=== PATIENT | female | born 2005 | race Two or more races ===

== ENCOUNTER 2023-12-02 17:44 | Emergency (ER) | payer OTHER ==
[~2023-12-02] VITALS: Ht 154.9 cm; Wt 80.3 kg
[2023-12-02] MEDS ORDERED: FOLIC ACID0.8 M1 (17:56)
[2023-12-02] MEDS ORDERED: PRENATAL MULTI1 EAC3 (17:56)
[2023-12-02] MEDS ORDERED: 0.9 % SODIUM CHLORIDE 1,000 ML IV ONE (18:30)
[2023-12-02] MEDS ORDERED: FAMOtidine 10 MG/ML (4ML VIAL) IV ONE (18:30)
[2023-12-02] MEDS ORDERED: ONDANSETRON HCL 2 MG/ML VIAL IV ONE (18:30)
[2023-12-02] MEDS ORDERED: ONDANSETRON HCL 2 MG/ML VIAL ONE (18:35)
[2023-12-02] MEDS ORDERED: FAMOTIDINE/PF 20 MG/2 ML VIAL ONE (18:35)
[2023-12-02 19:03] LABS: HEMATOCRIT 42.8 % (36.0-45.00); HEMOGLOBIN 14.4 g/dL (12.0-15.00); MEAN CELL VOLUME 86.5 fL (80.00-100.00); MEAN CORPUSCULAR HEMOGLOBIN 29.1 pg (27.00-32.0); MEAN CORPUSCULAR HGB CONC 33.7 g/dl (32.0-36.0); PLATELET COUNT 196 K/uL (150-450); RED BLOOD COUNT 4.95 M/uL (4.00-6.00); RED CELL DISTRIBUTION WIDTH 13.7 % (11.5-14.5)
[2023-12-02 19:25] LABS: ALBUMIN 3.9 gm/dL (3.4-5.0); BILIRUBIN TOTAL 0.6 mg/dL (0.3-1.2); CALCIUM 9.9 mg/dL (8.5-10.1); CREATININE SERUM 0.52 mg/dL (0.55-1.02); GFR 150.34; GLOBULINA 3.7 G/DL (2.4-3.5); POTASSIUM 4.11 mEq/L (3.5-5.1); TOTAL PROTEIN 7.6 gm/dL (6.4-8.2)
[2023-12-02] MEDS ORDERED: ZOFRAN8 MG PO (21:40)
[2023-12-02] MEDS ORDERED: PEPCID AC20 MG PO (21:40)
== END 2023-12-02 21:49 | disposition home or self-care (01) ==
LOC: ER 17:46 → EMR PED 17:46 → ER 19:02
PROVIDERS: General Practice
DX: O99.611 Diseases of the digestive system complicating pregnancy, first trimester (principal); K92.89 Other specified diseases of the digestive system; Z3A.11 11 weeks gestation of pregnancy; R11.10 Vomiting, unspecified; Z20.822 Contact with and (suspected) exposure to COVID-19

== ENCOUNTER 2023-12-10 13:06 | Outpatient (CLI) | payer OTHER ==
[~2023-12-10 13:06] MED LIST: FOLIC ACID0.8 M1; PEPCID AC20 MG PO; PRENATAL MULTI1 EAC3; ZOFRAN8 MG PO
== END 2023-12-10 13:08 | disposition home or self-care (01) ==
LOC: PRENATAL 13:06
PROVIDERS: ATTEND Obstetrics & Gynecology Maternal & Fetal Medicine
DX: O36.80X0 Pregnancy with inconclusive fetal viability, not applicable or unspecified (principal); Z36.82 Encounter for antenatal screening for nuchal translucency; Z14.8 Genetic carrier of other disease; Z3A.12 12 weeks gestation of pregnancy

== ENCOUNTER 2023-12-29 12:14 | Outpatient (CLI) | payer OTHER | END 2023-12-29 12:15 | disposition home or self-care (01) | LOC: PRENATAL 12:14 | PROVIDERS: ATTEND Obstetrics & Gynecology Maternal & Fetal Medicine | DX: O26.849 Uterine size-date discrepancy, unspecified trimester (principal); O28.5 Abnormal chromosomal and genetic finding on antenatal screening of mother; O21.0 Mild hyperemesis gravidarum; Z3A.16 16 weeks gestation of pregnancy ==

== ENCOUNTER 2023-12-29 12:21 | Outpatient (CLI) | payer OTHER | END 2023-12-29 12:32 | disposition home or self-care (01) | LOC: LAB 12:21 | PROVIDERS: ATTEND Obstetrics & Gynecology Maternal & Fetal Medicine | DX: Z00.00 Encounter for general adult medical examination without abnormal findings (principal) ==

== ENCOUNTER 2024-01-23 10:19 | Outpatient (CLI) | payer OTHER ==
[2024-01-23] MEDS ORDERED: PRENATAL TABLE1 EAC1 PO (14:36)
[2024-01-23] MEDS ORDERED: FOLIC ACID0.8 M1 PO (14:36)
== END 2024-01-23 10:20 | disposition home or self-care (01) ==
LOC: PRENATAL 10:19
PROVIDERS: ATTEND Obstetrics & Gynecology Maternal & Fetal Medicine
DX: O35.3XX0 Maternal care for (suspected) damage to fetus from viral disease in mother, not applicable or unspecified (principal); O44.00 Complete placenta previa NOS or without hemorrhage, unspecified trimester; O28.5 Abnormal chromosomal and genetic finding on antenatal screening of mother; O26.879 Cervical shortening, unspecified trimester; Z3A.20 20 weeks gestation of pregnancy

== ENCOUNTER 2024-01-23 13:34 | Outpatient (CLI) | payer OTHER ==
[2024-01-23 12:23] VITALS: BP 105/67
[2024-01-23] MEDS ORDERED: RINGERS SOLUTION,LACTATED 1,000 ML IV SCH (14:00)
[2024-01-23] MEDS ORDERED: PRENATAL TABLE1 EAC1 PO (14:36)
[2024-01-23] MEDS ORDERED: FOLIC ACID0.8 M1 PO (14:36)
[2024-01-23 14:49] LABS: HEMATOCRIT 34.8 % (36.0-45.00); HEMOGLOBIN 11.7 g/dL (12.0-15.00); MEAN CELL VOLUME 89.4 fL (80.00-100.00); MEAN CORPUSCULAR HEMOGLOBIN 30.1 pg (27.00-32.0); MEAN CORPUSCULAR HGB CONC 33.7 g/dl (32.0-36.0); PLATELET COUNT 215 K/uL (150-450); RED BLOOD COUNT 3.89 M/uL (4.00-6.00)
[2024-01-23 14:52] LABS: URINE APPEARANCE Turbid; URINE BILIRRUBIN Small (NEGATIVE); URINE BLOOD Negative; URINE COLOR Dark Yellow; URINE GLUCOSE Negative (NEGATIVE); URINE LEUKOCYTE Moderate; URINE NITRATE Negative; URINE PROTEIN 30 (NEGATIVE)
[2024-01-23 14:58] LABS: URINE CAST 3.05 uL (0.0-1.40); URINE RBC 162.7 uL (0.0-20.8); URINE WBC 687.5 uL (0.0-23.2)
[2024-01-23 15:23] LABS: BILIRUBIN TOTAL 0.51 mg/dL (0.3-1.2); CALCIUM 9.4 mg/dL (8.5-10.1); GFR 320.28; GLOBULINA 3.4 G/DL (2.4-3.5); POTASSIUM 3.89 mEq/L (3.5-5.1); TOTAL PROTEIN 6.4 gm/dL (6.4-8.2)
[2024-01-23 15:25] VITALS: BP 115/72
[2024-01-23 15:36] LABS: CREATININE SERUM 0.27 mg/dL (0.55-1.02)
[2024-01-23 15:37] LABS: URINE BACTERIA > 9821.5 uL (0.0-1933); URINE EPITHELIAL CELLS > 201.7 uL (0.0-38.8); URINE KETONE >=160 (NEGATIVE)
[2024-01-23 18:11] VITALS: BP 115/72
== END 2024-01-23 18:11 | disposition home or self-care (01) ==
LOC: OBS/DEL 13:34
PROVIDERS: Obstetrics & Gynecology; ATTEND General Practice
DX: O26.872 Cervical shortening, second trimester (principal); Z3A.20 20 weeks gestation of pregnancy

== ENCOUNTER 2024-01-26 08:43 | Outpatient (CLI) | payer OTHER ==
[~2024-01-26 08:43] MED LIST changes: +FOLIC ACID0.8 M1 PO; +PRENATAL TABLE1 EAC1 PO
== END 2024-01-26 08:47 | disposition home or self-care (01) ==
LOC: PRENATAL 08:43
PROVIDERS: ATTEND Obstetrics & Gynecology Maternal & Fetal Medicine
DX: O28.5 Abnormal chromosomal and genetic finding on antenatal screening of mother (principal); O26.879 Cervical shortening, unspecified trimester; Z3A.20 20 weeks gestation of pregnancy

== ENCOUNTER 2024-01-26 09:55 | Inpatient (IN) | payer OTHER ==
[~2024-01-26] VITALS: Ht 152.4 cm; Wt 78.9 kg
[2024-01-26 10:13] VITALS: BP 109/70
[2024-01-26] MEDS ORDERED: RINGERS SOLUTION,LACTATED 1,000 ML IV SCH (11:30)
[2024-01-26] MEDS ORDERED: CEFAZOLIN SODIUM 1,000 MG VIAL IV NR (11:30)
[2024-01-26 12:33] LABS: HEMOGLOBIN 11.6 g/dL (12.0-15.00); MEAN CORPUSCULAR HEMOGLOBIN 30.1 pg (27.00-32.0); MEAN CORPUSCULAR HGB CONC 34.2 g/dl (32.0-36.0); PLATELET COUNT 205 K/uL (150-450); RED BLOOD COUNT 3.87 M/uL (4.00-6.00); RED CELL DISTRIBUTION WIDTH 15.3 % (11.5-14.5)
[2024-01-26 12:40] VITALS: BP 102/70
[2024-01-26 12:50] LABS: INR 0.94; PARTIAL THROMBOPLASTIN TIME 25.8 SECONDS (22.0-34.0); PROTHROMBIN TIME 9.8 SECONDS (9.0-11.5)
[2024-01-26 12:57] LABS: ALBUMIN 2.9 gm/dL (3.4-5.0); BILIRUBIN TOTAL 0.41 mg/dL (0.3-1.2); CALCIUM 9.4 mg/dL (8.5-10.1); CREATININE SERUM 0.3 mg/dL (0.55-1.02); GFR 283.61; GLOBULINA 3.4 G/DL (2.4-3.5); POTASSIUM 4.2 mEq/L (3.5-5.1); TOTAL PROTEIN 6.3 gm/dL (6.4-8.2)
[2024-01-26] MEDS ORDERED: METRONIDAZOLE/SODIUM CHLORIDE 500 MG/100 ML PIGGYBACK IV SCH (13:00)
[2024-01-26] MEDS ORDERED: INDOMETHACIN 50 MG CAPSULE PO SCH (13:00)
[2024-01-26 13:11] LABS: URINE APPEARANCE Clear; URINE BILIRRUBIN Negative (NEGATIVE); URINE BLOOD Negative; URINE COLOR Yellow; URINE GLUCOSE Negative (NEGATIVE); URINE LEUKOCYTE Negative; URINE NITRATE Negative; URINE PROTEIN Negative (NEGATIVE)
[2024-01-26 13:14] LABS: URINE BACTERIA 167.5 uL (0.0-1933); URINE EPITHELIAL CELLS 23.3 uL (0.0-38.8); URINE RBC 4.4 uL (0.0-20.8); URINE WBC 9.2 uL (0.0-23.2)
[2024-01-26 13:25] LABS: URINE CAST 0.15 uL (0.0-1.40); URINE KETONE >=160 (NEGATIVE)
[2024-01-26] MEDS ORDERED: POVIDONE-IODINE 118 ML BOTT TOP ONE (15:45)
[2024-01-26] MEDS ORDERED: INDOMETHACIN 25 MG CAPSULE PO PRN (16:15)
[2024-01-26] MEDS ORDERED: ONDANSETRON HCL 2 MG/ML VIAL IV ONE (17:10)
[2024-01-26 18:12] VITALS: BP 100/64
[2024-01-26] MEDS ORDERED: ACETAMINOPHEN 500 MG GEL..CAP PO PRN (20:00)
[2024-01-26 20:14] VITALS: BP 99/65
[2024-01-26 23:51] VITALS: BP 100/57; O2SAT 99
[2024-01-27 03:38] VITALS: BP 103/61; O2SAT 100
[2024-01-27 07:29] VITALS: BP 97/56
[2024-01-27 12:23] VITALS: BP 104/64
[2024-01-27 16:00] VITALS: BP 98/58
== END 2024-01-27 17:50 | disposition home or self-care (01) | DRG 819 ==
LOC: CIR.AMB 09:55 → LDR 10:04 → O/R 15:52 → LDR 17:57
PROVIDERS: General Practice; ADMIT Obstetrics & Gynecology Maternal & Fetal Medicine; ATTEND Obstetrics & Gynecology Maternal & Fetal Medicine
PROC: 4A1HXCZ Monitoring of Products of Conception, Cardiac Rate, External Approach (ICD-10-PCS; 2024-01-26)
PROC: 0UVC7ZZ Restriction of Cervix, Via Natural or Artificial Opening (ICD-10-PCS; principal; 2024-01-26 15:45)
DX: O26.872 Cervical shortening, second trimester (principal); Z20.822 Contact with and (suspected) exposure to COVID-19; Z3A.20 20 weeks gestation of pregnancy

== ENCOUNTER 2024-04-05 12:22 | Outpatient (CLI) | payer OTHER | END 2024-04-05 12:23 | disposition home or self-care (01) | LOC: PRENATAL 12:22 | PROVIDERS: ATTEND Obstetrics & Gynecology Maternal & Fetal Medicine | DX: O26.849 Uterine size-date discrepancy, unspecified trimester (principal); O36.8199 Decreased fetal movements, unspecified trimester, other fetus; O28.5 Abnormal chromosomal and genetic finding on antenatal screening of mother; O26.879 Cervical shortening, unspecified trimester; Z3A.29 29 weeks gestation of pregnancy ==

== ENCOUNTER 2024-05-14 11:15 | Outpatient (CLI) | payer OTHER | END 2024-05-14 11:16 | disposition home or self-care (01) | LOC: PRENATAL 11:15 | PROVIDERS: ATTEND Obstetrics & Gynecology Maternal & Fetal Medicine | DX: O26.849 Uterine size-date discrepancy, unspecified trimester (principal); O36.8199 Decreased fetal movements, unspecified trimester, other fetus; O28.5 Abnormal chromosomal and genetic finding on antenatal screening of mother; O26.879 Cervical shortening, unspecified trimester; Z3A.34 34 weeks gestation of pregnancy ==